=== PATIENT | male | born 1985 | race Caucasian/White ===

== ENCOUNTER 2020-05-16 07:51 | Outpatient (REF) | payer OTHER, SELFPAY ==
[2020-05-16 11:26] LABS: Alanine Aminotransferase 58 U/L (0-40); Alkaline Phosphatase 91 U/L (39-117); Anion Gap 17 (12-20); Aspartate Amino Transferase 41 U/L (5-37); Bilirubin Total 0.7 mg/dL (0.0-1.0); Blood Urea Nitrogen 12 mg/dL (9-16); Calcium 9.2 mg/dL (8.4-10.2); Carbon Dioxide 25 mmol/L (22-29); Chloride 99 mmol/L (96-108); Cholesterol 246 mg/dL; Estimated Glomerular Filt Rate > 60; Glucose Fasting 95 mg/dL (60-99); HDL Cholesterol 73 mg/dL; LDL Cholesterol Calculated 155 mg/dl; Potassium 4.6 mmol/l (3.3-5.1); Sodium 136 mmol/L (135-145); Total Protein 7.8 g/dL (6.5-8.0); Triglycerides 94 mg/dL
[2020-05-16 11:51] LABS: TSH reflex Free T4 1.01 mIU/mL (0.32-4.0)
== END 2020-05-16 07:52 | disposition home or self-care (01) ==
LOC: HO.WFDLDS 07:51
PROVIDERS: Visit Provider Family Medicine
DX: R03.0 Elevated blood-pressure reading, without diagnosis of hypertension (principal); Z00.00 Encounter for general adult medical examination without abnormal findings
CPT/HCPCS: 80053; 80061; 84443

== ENCOUNTER 2023-01-22 09:55 | Outpatient (REF) | payer OTHER, SELFPAY ==
[2023-01-22 11:35] LABS: Hematocrit 44.6 % (42.0-52.0); Hemoglobin 15.1 g/dl (14.0-18.0); Mean Corpuscular HGB Conc 33.9 g/dl (31.0-36.0); Mean Corpuscular Hemoglobin 32.1 pg (27.0-33.0); Mean Corpuscular Volume 94.9 fL (80.0-98.0); Mean Platelet Volume 11.3 fL (9.4-12.4); Platelet Count 238 X10*3/uL (160-400); Red Cell Distribution Width 11.5 % (11.0-16.0); White Blood Count 6.5 X10*3/uL (4.8-10.8)
[2023-01-22 12:20] LABS: Alanine Aminotransferase 65 U/L (0-40); Albumin Level 4.6 g/dL (3.5-5.0); Alkaline Phosphatase 93 U/L (39-117); Anion Gap 15 (12-20); Aspartate Amino Transferase 52 U/L (5-37); Bilirubin Total 0.9 mg/dL (0.0-1.0); Blood Urea Nitrogen 13 mg/dL (9-16); Calcium 10.1 mg/dL (8.4-10.2); Carbon Dioxide 24 mmol/L (22-29); Chloride 104 mmol/L (96-108); Cholesterol 238 mg/dL; Estimated Glomerular Filt Rate > 60; Glucose Fasting 91 mg/dL (60-99); HDL Cholesterol 59 mg/dL; LDL Cholesterol Calculated 157 mg/dl; Potassium 4.3 mmol/L (3.3-5.1); Sodium 139 mmol/L (135-145); Total Protein 7.6 g/dL (6.5-8.0); Triglycerides 113 mg/dL
[2023-01-22 12:36] LABS: TSH reflex Free T4 0.91 uIU/mL (0.32-4.0)
== END 2023-01-22 09:56 | disposition home or self-care (01) ==
LOC: HO.WFDLDS 09:55
PROVIDERS: Visit Provider Nurse Practitioner Family
DX: Z00.00 Encounter for general adult medical examination without abnormal findings (principal); I10 Essential (primary) hypertension
CPT/HCPCS: 36415; 80053; 80061; 84443; 85027

== ENCOUNTER 2023-02-13 16:30 | Outpatient (AMB) | payer OTHER, SELFPAY ==
--- NOTE | 2023-02-13 16:33 | MHC.PC.OV ---
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 Accompanied by: Self / Same As Patient Allergies No Known Allergies Allergy (Verified 02/13/23 16:49) Medication List - Last Reconciled 02/13/23 by Pramod Teague, LING alprazolam 0.5 mg PO DAILY PRN benzonatate 200 mg PO TID buspirone 7.5 mg PO BID lisinopril 20 mg PO DAILY 30 days metoprolol succinate ER 25 mg PO BID 90 days propranolol 10 mg PO BID Tobacco use date assessed: 12/14/22 Dental Screening Dental Screen Date: 02/13/23 Did you have a dental visit in the last 12 months?: Yes Did you have a dental problem in the last 6 months where you did not have access to dental care?: No Was dental information given to patient?: Patient has dentist HPI HPI Comments History of Present Illness Details 37-year-old male presents for upper respiratory infection follow-up. He states he was evaluated at an urgent care clinic in [place] 4 days ago for upper respiratory infection and acute bronchitis. Negative covid/flu/RSV/strep test. Chest x-ray w/o acute findings of pneumonia. He reports sore throat, chest congestion, productive cough with brow to green phlegm, sweats, chills, SOB, lack of appetite, and occasional diarrhea. He also reports new onset of pressure in his ears and occasional pain in his left ear. He was prescribed Benzonate which he has been taking with significant cough improvement. He denies headache, fever, body aches, fatigue, or weakness. He notes he drinks 3 days weekly, a total of 30 beers PFSH Family History Father High blood pressure Social History Household Members: Family Household Members Other:: parents Both parents involved: Yes Caregiver staying overnight: No Housing: House Housing Other:: hmoe Are you a primary wound care nurse to a significant other at home: No Do you presently have visiting nurse or other home services: No 75 years or older and lives alone: No Alcohol intake: current Patient Tobacco Use Status: Former Tobacco user Quit Date: 2017 Cigarette Packs Per Day: 1 Cigarettes Per Day: 20.0 Years Smoked: 5 e-Cigarette/Vaping Use: Never Used Substance Use Type: Painkillers service: No Current occupational status: employed 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 Pal Bruce, Jessika Mendez, Salazar Puente and colleagues, with an educational pedro from [employer]. Review of Systems Const Details: Const Denies chills, Denies fatigue, Denies fever(s), Denies headache(s) and Denies weakness ENT Reports as per HPI Card Reports chest congestion, Denies chest pain, Denies lightheadedness, Denies dyspnea and Denies other (Palpitations) Resp Reports cough, Denies dyspnea, Denies wheezing and Denies other ( shortness of breath) GI Denies abdominal pain, Denies melena, Denies hematochezia, reports occasional diarrhea, Denies dyspepsia and Denies nausea Denies hematuria and Denies dysuria Musc Denies abnormal gait, Denies myalgias, Denies arthralgias, Denies numbness and Denies tingling Skin/Breast Denies rash, Denies unusual bruising and Denies wounds Neuro Denies abnormal gait, Denies dizziness, Denies headache(s), Denies memory loss, Denies numbness, Denies Sensory deficit (Neuro), Denies tingling and Denies weakness Psych Denies anxiety and Denies depression Endo Denies fatigue Aller/Immun Denies wheezing Physical exam (Primary Care) Tobacco/Smoking Status: Tobacco use Status Tobacco use date assessed 12/14/22 02/13/23 16:33 Patient Tobacco Use Status Former Tobacco user 02/13/23 16:33 e-Cigarette/Vaping Use Never Used 02/13/23 16:33 Thrive Assessment: Date of Thrive Assessment Date Thrive assessed 12/14/22 02/13/23 16:33 Const Other: General: no acute distress and well developed Nutritional Appearance: well nourished Orientation/consciousness: patient oriented x3 HENMT Head is normocephalic Significant erythema surrounding bilateral TM, no bulging, effusion, or edema Nasal turbinates and oropharynx are pink and moist Sinuses are nontender with palpation No auricular or cervical lymphadenopathy Eyes General: appearance normal, both eyes and all related structures Pupils: Equal, round and reactive pupils present EOM: EOMs intact bilaterally Resp Effort & Inspection: normal respiratory effort Auscultation: clear to auscultation bilaterally Cardio Rate: regular rate Rhythm: regular rhythm Heart sounds: S1 normal heart sound present, S2 normal heart sound present, no gallops, no murmurs and no rubs GI Palpation (GI): No Abdominal aortic bruit present, Soft to palpation, nontender, No hepatosplenomegaly present and No Rebound tenderness present Auscultation: normal bowel sounds General: Yes no CVA tenderness Back/Spine/Pelvis Back: no CVA tenderness Cervical Spine: cervical ROM normal and No Cervical spine tenderness Thoracic/Lumbar Spine: thoraco-lumbar ROM normal, No pain with thoraco-lumbar ROM, No thoracic spinal tenderness and No lumbar spinal tenderness Extrem General: Yes normal to inspection, No edema and No calf tenderness Skin General: warm and dry. Normal skin color. Normal skin turgor Lesions: no lesions Rashes: no rashes Trauma: no lacerations or abrasions Wounds: no wounds Nails: normal Neuro General: patient oriented x3, gait normal and no focal neuro deficit Cranial nerves: Yes Equal, round and reactive pupils present Cognition (Neuro): normal cognition Gait exam (Neuro): Normal gait present Sensory Exam: No Sensory deficit (Neuro) Psych Affect: normal affect Assessment and Plan Assessment & Plan (1) Viral upper respiratory illness: Code(s): J06.9 - Acute upper respiratory infection, unspecified Plan: Likely viral illness though possibly allergies. Viral illness There is no antibiotic medication for viruses.? They must run their course.? Most average 5-7 days but 7-10 days is not uncommon and up to 14 days is still possible.? A cough is often the last symptom to resolve and this can last for weeks in some cases. Rest Hydrate well -? Drink plenty of fluids.? Especially water. Tylenol or ibuprofen for muscle aches, headache, fever/discomfort Z-Brandon as ordered Chest x-ray ordered to rule out pneumonia Return for new or worsening symptoms Verbalized understanding and agreed with treatment plan. (2) Bilateral otitis media: Code(s): H66.93 - Otitis media, unspecified, bilateral Plan: Reports new onset of pressure in his ears and occasional pain in his left ear Significant erythema surrounding bilateral TM, no bulging, effusion, or edema Z-Brandon ordered. Take as prescribed Adequate hydration encouraged Follow-up with worsening or new symptoms Verbalized understanding and agreed with treatment plan. (3) Hypercholesterolemia: Code(s): E78.00 - Pure hypercholesterolemia, unspecified Plan: Recent blood work reviewed with the patient Total cholesterol and LDL are elevated; triglycerides and HDL are normal Advised to limit foods high in saturated fat and avoid foods high trans fat Routine exercise encouraged Verbalized understanding and agreed with treatment plan (4) Elevated LFTs: Code(s): R79.89 - Other specified abnormal findings of blood chemistry Plan: AST and ALT elevated Likely due to excessive alcohol intake Advised to limit or avoid alcohol consumption Liver ultrasound ordered Follow-up with PCP in 1 month or return sooner with symptoms or concerns Verbalized understanding and agreed with treatment plan. (5) Hypertension: Code(s): I10 - Essential (primary) hypertension Plan: Resting blood pressure is 138/80, below goal of less than 140/90 Continue to take antihypertensives as prescribed Low-sodium diet encouraged Follow-up with PCP in 1 month or return sooner with symptoms or concerns Verbalized understanding and agreed with treatment plan. Orders: Orders XR chest 2V Today J06.9 - Acute upper respiratory infection, unspecified US abdomen limited Today R79.89 - Other specified abnormal findings of blood chemistry Medications: New cetirizine (Zyrtec) 10 mg PO DAILY 30 tabs 2RF 30 days azithromycin (Zithromax Z-Brandon) For 250 mg dose pack: take 500 mg today (day 1), then 250 mg for 4 days (days 2-5) PO 6 tabs 0RF Coding Level of Care Code Est Pt Level 4 (59622) Diagnoses Viral upper respiratory illness J06.9 Bilateral otitis media H66.93 Hypercholesterolemia E78.00 Elevated LFTs R79.89 Hypertension I10
[2023-02-13 16:37] VITALS: BP 142/80; PULSE 87; O2SAT 97; BMI 36.3
[2023-02-13 17:02] VITALS: BP 138/80
== END 2023-02-13 17:13 | disposition home or self-care (01) ==
PROVIDERS: PCP Family Medicine; Visit Provider Nurse Practitioner Family
DX: I10 Essential (primary) hypertension (principal); J06.9 Acute upper respiratory infection, unspecified; H66.93 Otitis media, unspecified, bilateral; E78.00 Pure hypercholesterolemia, unspecified; R79.89 Other specified abnormal findings of blood chemistry
CPT/HCPCS: 99214

== ENCOUNTER 2023-03-07 08:19 | Outpatient (REF) | payer OTHER, SELFPAY ==
--- NOTE | ~2023-03-07 | US_ITS ---
EXAMINATION: US ABDOMEN LIMITED CLINICAL INFORMATION: Other specified abnormal findings of blood chemistry. COMPARISON: None available. TECHNIQUE: Real-time imaging of the right upper quadrant abdominal viscera. FINDINGS: PANCREAS: Normal. LIVER: The liver is normal in size. The liver contour is normal. No focal hepatic lesion. The liver is of increased parenchymal echotexture. There is no intrahepatic biliary duct dilatation seen. GALLBLADDER: The gallbladder is physiologically distended without evidence of stones, sludge, polyps, wall thickening or pericholecystic fluid. COMMON BILE DUCT: Normal in caliber measuring 0.53 cm in diameter. RIGHT KIDNEY: Normal. No hydronephrosis. No renal calculi or focal parenchymal lesions. The kidney measures 11.6 cm in maximum dimension. FREE FLUID: None. US/US abdomen limited IMPRESSION: No gallstones or biliary dilatation. Fatty infiltration of the liver.
== END 2023-03-07 08:20 | disposition home or self-care (01) ==
LOC: HO.HMGCX 08:19
PROVIDERS: PCP Family Medicine; Visit Provider Nurse Practitioner Family
DX: R79.89 Other specified abnormal findings of blood chemistry (principal); K76.0 Fatty (change of) liver, not elsewhere classified
CPT/HCPCS: 76705

== ENCOUNTER 2023-03-14 15:28 | Outpatient (AMB) | payer OTHER, SELFPAY ==
--- NOTE | 2023-03-14 15:30 | MHC.PC.OV ---
Vital Signs 03/14/23 15:33 Height 5 ft 11 in Weight 263 lb BMI 36.7 BP 120/70 Blood Pressure Location Lt brachial Pulse 77 Pulse Source Pulse Oximeter Pulse Oximetry (%) 97 Oxygen Delivery Method Room Air Intake Visit Reasons: 1 mos HTN, anxiety Intake Note: Patient is here to follow up on labs and ultrasound. Allergies No Known Allergies Allergy (Verified 03/14/23 15:37) Tobacco use date assessed: 03/14/23 HPI 1 mos HTN, anxiety HPI Details 37 y/o male presents to f/u hypertension and anxiety. Blood pressure today 120/70. He is on lisinopril 20mg, metoprolol 25mg b.i.d. and propranolol 10mg b.i.d. Abdomen ultrasound 03/07/23 showed no gallstones or biliary dilatation. Fatty infiltration of the liver. Pt notes he has not had made significant changes to his drinking. PFSH Family History Father High blood pressure Social History Household Members: Family Household Members Other:: parents Both parents involved: Yes Caregiver staying overnight: No Housing: House Housing Other:: hmoe Are you a primary district manager primary care sales to a significant other at home: No Do you presently have visiting nurse or other home services: No 75 years or older and lives alone: No Alcohol intake: current Patient Tobacco Use Status: Former Tobacco user Quit Date: 2017 Cigarette Packs Per Day: 1 Cigarettes Per Day: 20.0 Years Smoked: 5 e-Cigarette/Vaping Use: Never Used Substance Use Type: Painkillers service: No Current occupational status: employed 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 Pal Bruce, Jessika Mendez, Salazar Puente and colleagues, with an educational pedro from [employer] Review of Systems Const Denies chills, Denies fatigue, Denies fever(s), Denies headache(s) and Denies weakness ENT Denies dizziness and Denies headache(s) Card Denies chest pain, Denies lightheadedness, Denies dyspnea and Denies other (Palpitations) Resp Denies cough, Denies dyspnea, Denies wheezing and Denies other ( shortness of breath) Musc Denies numbness and Denies tingling Neuro Denies dizziness, Denies headache(s), Denies numbness, Denies tingling, Denies paresthesias and Denies weakness Psych Denies anxiety and Denies depression Endo Denies fatigue Aller/Immun Denies wheezing Physical exam (Primary Care) Vital Signs: Last Vital Signs Pulse 77 03/14/23 15:33 BP 120/70 03/14/23 15:33 Pulse Ox 97 03/14/23 15:33 Oxygen Delivery Method Room Air 03/14/23 15:33 BMI result Body Mass Index 36.7 Tobacco/Smoking Status: Tobacco use Status Tobacco use date assessed 03/14/23 03/14/23 15:38 Patient Tobacco Use Status Former Tobacco user 03/14/23 15:32 e-Cigarette/Vaping Use Never Used 03/14/23 15:32 Thrive Assessment: Date of Thrive Assessment Date Thrive assessed 12/14/22 03/14/23 15:32 Const General: no acute distress and well developed Nutritional Appearance: well nourished Orientation/consciousness: patient oriented x3 HENMT Head: Yes normocephalic and Yes atraumatic Eyes General: appearance normal, both eyes and all related structures Pupils: Equal, round and reactive pupils present EOM: EOMs intact bilaterally Resp Effort & Inspection: normal respiratory effort Auscultation: clear to auscultation bilaterally Cardio Rate: regular rate Rhythm: regular rhythm Heart sounds: S1 normal heart sound present, S2 normal heart sound present, no gallops, no murmurs and no rubs Neuro General: patient oriented x3 and gait normal Cranial nerves: Yes Equal, round and reactive pupils present Psych Affect: normal affect Assessment and Plan Assessment & Plan (1) Hypertension: Code(s): I10 - Essential (primary) hypertension Plan: Blood pressure is well controlled. Patient is on lisinopril and metoprolol for blood pressure and metoprolol was also started to help with anxiety - patient notes that this has been helping with anxiety. However, his psych med provider added some propranolol as well. Patient notes that psych med provider is aware metoprolol. He will discuss again with his psych med provider; I would prefer to have 1 beta-adenike and would be willing to switch over all this to propranolol if recommended. (2) Anxiety: Code(s): F41.9 - Anxiety disorder, unspecified Plan: Controlled on current medications; alprazolam buspirone and beta-blockers. Follow-up with psych med provider as mentioned above (3) Elevated LFTs: Code(s): R79.89 - Other specified abnormal findings of blood chemistry Plan: Elevated liver enzymes and ultrasound showed fatty deposits in the liver but otherwise unremarkable. He has not made significant changes in his drinking but after a long discussion today seems to be more motivated to do so. Encouraged decreasing alcohol intake, increasing hydration and encouraged weight loss Will follow his liver enzymes If worsening will consider ultrasound with elastography and referral to GI Hopefully he will be able to bring his liver enzymes down with above recommendations (4) Alcohol use disorder: Code(s): F10.90 - Alcohol use, unspecified, uncomplicated Plan: As above, patient is still drinking about 30 drinks per week Encouraged wean this down and patient seems motivated to try to do so. Orders: Orders Comprehensive Met. Panel Today R74.01 - Elevation of levels of liver transaminase levels Coding Level of Care Code Est Pt Level 3 (43980) Diagnoses Hypertension I10 Anxiety F41.9 Elevated LFTs R79.89 Alcohol use disorder F10.90
[2023-03-14 15:33] VITALS: BP 120/70; PULSE 77; O2SAT 97; BMI 36.7
== END 2023-03-14 16:37 | disposition home or self-care (01) ==
PROVIDERS: PCP Family Medicine; Visit Provider Family Medicine
DX: I10 Essential (primary) hypertension (principal); F41.9 Anxiety disorder, unspecified; R79.89 Other specified abnormal findings of blood chemistry; F10.90 Alcohol use, unspecified, uncomplicated
CPT/HCPCS: 99213

== ENCOUNTER 2024-08-22 09:36 | Outpatient (REF) | payer OTHER, SELFPAY ==
[2024-08-22 11:14] LABS: Appearance Urine Clear; Color Urine Yellow; Glucose Urine UA Negative (Negative); Leukocyte Esterase Urine Negative (Negative); Nitrite Urine Negative (Negative); PH 6.5 (5.0-9.0); Specific Gravity - Urine <= 1.005 (1.005-1.025); Urine Blood Negative (Negative); Urine Ketones Negative (Negative); Urine Protein Negative (Neg-Trace)
[2024-08-22 11:15] LABS: MANUAL DIFF FLAG NO
[2024-08-22 11:19] LABS: Basophils Percent Auto 0.6 % (0-2); Eosinophils Absolute Auto 0.2 X10*3/uL (0.0-0.4); Eosinophils Percent Auto 3.1 % (0-4); Hematocrit 43.6 % (42.0-52.0); Hemoglobin 14.9 g/dl (14.0-18.0); Imm Gran Abs Auto 0.03 X10*3/uL (0.00-0.03); Imm Gran Pct Auto 0.5 % (0.0-0.4); Lymphocytes Absolute Auto 1.9 X10*3/uL (1.2-4.9); Lymphocytes Percent Auto 30.2 % (20-40); Mean Corpuscular HGB Conc 34.2 g/dl (31.0-36.0); Mean Corpuscular Hemoglobin 31.7 pg (27.0-33.0); Mean Corpuscular Volume 92.8 fL (80.0-98.0); Mean Platelet Volume 10.9 fL (9.4-12.4); Monocytes Absolute Auto 0.8 X10*3/uL (0.1-1.2); Monocytes Percent Auto 11.8 % (2-11); Neutrophils Absolute Auto 3.5 x10*3/uL (2.0-8.3); Neutrophils Percent Auto 53.8 % (45-73); Platelet Count 226 X10*3/uL (160-400); Red Cell Distribution Width 11.8 % (11.0-16.0); White Blood Count 6.4 X10*3/uL (4.8-10.8)
[2024-08-22 11:32] LABS: Creatinine Urine 51.85 mg/dL; Microalbum/Creatinine Ratio Ur 23.1 ug/mg cr (<30)
[2024-08-22 11:57] LABS: Alanine Aminotransferase 108 U/L (0-40); Albumin Level 4.7 g/dL (3.5-5.0); Alkaline Phosphatase 97 U/L (39-117); Anion Gap 15 (12-20); Aspartate Amino Transferase 89 U/L (5-37); Bilirubin Total 0.8 mg/dL (0.0-1.0); Blood Urea Nitrogen 10 mg/dL (9-16); Calcium 9.8 mg/dL (8.4-10.2); Carbon Dioxide 26 mmol/L (22-29); Chloride 101 mmol/L (96-108); Cholesterol 225 mg/dL (<200); Estimated Glomerular Filt Rate > 60; Glucose Fasting 93 mg/dL (60-99); HDL Cholesterol 48 mg/dL (>40); LDL Cholesterol Calculated 151 mg/dL (<100); Potassium 4.5 mmol/L (3.3-5.1); Sodium 137 mmol/L (135-145); Total Protein 8.2 g/dL (6.5-8.0); Triglycerides 134 mg/dL (<150)
== END 2024-08-22 09:37 | disposition home or self-care (01) ==
LOC: HO.HMGCLDS 09:36
PROVIDERS: PCP Family Medicine; Visit Provider Family Medicine
DX: Z00.00 Encounter for general adult medical examination without abnormal findings (principal); I10 Essential (primary) hypertension
CPT/HCPCS: 36415; 80053; 80061; 81003; 82043; 82570; 84443; 85025

== ENCOUNTER 2024-08-24 11:51 | Outpatient (AMB) | payer OTHER, SELFPAY ==
--- NOTE | 2024-08-24 11:58 | MHC.PC.OV ---
Vital Signs 08/24/24 12:00 Height 5 ft 11 in Weight 277 lb BMI 38.6 BP 138/80 Blood Pressure Location Lt brachial Position Sitting Pulse 86 Pulse Source Pulse Oximeter Temp 98.2 F Temp Source Oral Pulse Oximetry (%) 95 Oxygen Delivery Method Room Air Intake Visit Reasons: PE /fu Labs Package Reinspector Required: No Allergies No Known Allergies Allergy (Verified 08/24/24 12:30) Medication List - Last Reconciled 08/24/24 by ALETHA HillP- alprazolam 0.5 mg PO DAILY PRN buspirone 7.5 mg PO BID lisinopril 20 mg PO DAILY 30 days propranolol 20 mg PO TID Tobacco use date assessed: 08/24/24 Dental Screening Dental Screen Date: 08/24/24 Did you have a dental visit in the last 12 months?: Yes Did you have a dental problem in the last 6 months where you did not have access to dental care?: No Was dental information given to patient?: Patient has dentist HPI HPI Comments History of Present Illness Details Here today for CPE. Pt of Dr Pineda. concerns regarding elevated liver enzymes noted during past evaluations, associated with chronic alcohol consumption. Historically, the patient has consumed approximately five to six beers daily, increasing during weekends. Attempts at reducing intake include participating in So[facility] and other short-lived abstinence periods. The recent laboratory evaluation from August 22, 2024 indicated further elevation in liver enzymes, with AST at 89 and ALT at 108 compared to prior results of AST 52 and ALT 65 from January 2023. The patient expresses concerns regarding the impact of alcohol on hepatic function and seeks to know current lab results. Despite previous interventions like temporary abstinence from alcohol, the patient?s drinking habits have persistently led to elevations in liver enzymes, with no significant lifestyle modifications implemented. The patient's hypertension well controlled on current meds hyperlipidemia not on statin ASHA/mood monitored by psych care assoc [facility] Maintenance - Discussion and offer of influenza vaccination declined. - Tetanus, diphtheria, and pertussis (Tdap) vaccination recommended and administered today - Brief weight management counseling due to a recorded weight of 279 pounds. - Brief educational discussion regarding risks of continued alcohol consumption and potential referrals for management. 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 - Familyhx: Dad with Multiple Myeloma - Substance Use: Reports consuming five to six beers daily, with increased consumption on weekends. No previous engagement with structured support for cessation. - Exercise and Nutrition: needs improvement Review of Systems - General: Denies any current subjective distress. - Musculoskeletal: Denies back, hip, or leg pain. - Gastrointestinal: Reports regular bowel movements and urination without issues. Surgery: none Exam: General: Well developed, well nourished, in no acute distress. Appears stated age. Head: Normocephalic, atraumatic. Eyes: Pupils are equal, round and reactive to light and accommodation. Conjunctivae are clear. Vision grossly normal. Ears: TMs clear AU, EACS WNL Nose: Patent, without discharge. Mouth: There are no ulcers or lesions noted. No inflammation, no post nasal drip, no plaques nor exudates. Neck: Supple, no adenopathy or thyromegaly. Lungs: Clear to auscultation bilaterally. No rales, rhonchi or wheeze noted. Good air flow in all rodríguez. Heart: Regular rate and rhythm. No murmurs, click, rubs or gallops are noted. Abdomen: Bowel sounds present in all quadrants. The abdomen is soft, nontender, with no masses or organomegaly noted. No hernias are noted. Musculoskeletal: Joints are nontender, without swelling, redness, or effusions. Range of motion is observed to be normal. Pulses: Peripheral pulses are equal and palpable bilaterally. Extremities: No clubbing, cyanosis nor edema is noted. Neurologic: Gait and station normal. Cranial Nerves 2-12 intact. Motor strength grossly symmetrical and intact. No sensory loss. Balance normal. Skin: No rashes, ulcers, or lesions noted. Turgor is good. Skin color is good. Hair and nails are without abnormalities. Psych: Normal eye contact, affect and mood appropriate, and normal interactions. Patient is alert and appropriate to context. Results - Labs: Liver function tests from August 22, 2024 revealed elevated AST at 89 and ALT at 108. Previously recorded AST 52 and ALT 65 from January 2023. Cholesterol remains elevated. Thyroid and blood sugar levels are within normal ranges. Discussion Notes I discussed the ramifications of elevated liver enzymes with the patient, likely related to chronic alcohol consumption. We reviewed how liver function tests have further deteriorated, emphasizing the need for a structured plan to lower alcohol intake. I introduced the concept of gradual lifestyle changes and suggested alcohol moderation as a potential strategy. We explored the option of engaging with the [facility] for individualized outpatient support, including possible medical and counseling interventions. In response, the patient expressed a desire to try moderation independently, acknowledging the support system available as needed. The potential risks and benefits of lifestyle modifications, including reducing alcohol intake to support liver health and overall wellness, were discussed. Consent for the tetanus vaccination was obtained. The necessity of adhering to prescribed antihypertensive treatment was reaffirmed, with arrangements made to modify prescription durations. Follow-up laboratory appointments were planned proactively to monitor liver function alongside cholesterol levels. Plan The elevated liver enzymes are primarily attributed to alcohol use disorder, highlighting a need for modified consumption habits. I discussed the importance of reducing daily alcohol intake to manage the condition effectively. The referral to the [facility] has been placed, allowing the patient the flexibility to engage with support as needed. The patient's hypertension will continue to be managed with lisinopril, pending insurance approval for 90-day supply prescriptions as preferred. The need for cholesterol management remains, with potential lifestyle interventions such as diet modifications and exercise deliberated. The anxiety disorder is currently stable with buspirone and propranolol, though the patient has been advised to contact psych care associates for any future therapeutic needs. Weight management counseling and discussions about follow-up intervals for routine wellness have also been addressed. Labs for non-fasting cholesterol and liver function tests will be ordered ahead of the next appointment to ensure ongoing monitoring. Patient was informed and verbally consented to the use of an ambient scribe for clinic note documentation during this visit. RTO 6 MONTHS WITH REPEAT LABS WITH PCP FU HTN HLD ETOH, SOONER PRN PFSH Surgical History No pertinent past surgical history Family History Father High blood pressure Social History Household Members: Family Household Members Other:: parents Both parents involved: Yes Caregiver staying overnight: No Housing: House Housing Other:: hmoe Are you a primary landcare officer to a significant other at home: No Do you presently have visiting nurse or other home services: No 75 years or older and lives alone: No Alcohol intake: current Patient Tobacco Use Status: Former Tobacco user Cigarette Packs Per Day: 1 Cigarettes Per Day: 20.0 Years Smoked: 5 e-Cigarette/Vaping Use: Never Used Substance Use Type: Painkillers service: No Current occupational status: employed 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 1. Little interest or pleasure in doing things: not at all 2. Feeling down, depressed, or hopeless: not at all 3. Trouble falling or staying asleep, or sleeping too much: not at all 4. Feeling tired or having little energy: not at all 5. Poor appetite or overeating: not at all 6. Feeling bad about yourself - or that you are a failure or have let yourself or your family down: not at all 7. Trouble concentrating on things, such as reading the newspaper or watching television: not at all 8. Moving or speaking so slowly that other people could have noticed. Or the opposite - being so fidgety or restless that you have been moving around a lot more than usual: not at all 9. Thoughts that you would be better off or of hurting yourself in some way: not at all Total score: 0 Depression Screening Interpretation: Negative Depression Screening Done: Yes 66595 - PHQ-9 Billing: Yes Source: Developed by Drs. Pal Bruce, Jessika Mendez, Salazar Puente and colleagues, with an educational pedro from [employer]. Thrive Questionnaire Date Thrive assessed: 08/24/24 I am a: Patient What is your living situation today?: I have a steady place to live Within the past 12 months, did the food you bought not last and you didn't have the money to get more?: Never true Within the past 12 months, did you worry whether your food would run out before you got money to buy more?: Never true Do you have trouble paying for medicines?: No Do you have trouble getting transportation to medical appointments?: No Do you have trouble paying your heating and electricity bill?: No Do you have trouble taking care of your child, family member or friend?: No Do you have trouble with day-to-day activities such as bathing, preparing meals, shopping, managing finances, etc.?: No Are you currently unemployed and looking for a job?: No Are you interested in more education?: No Please select the resources that you would like help with: None Currently or been in a relationship where the following occur: No concerns reported THRIVE Score: 0 AUDIT C Alcohol Use Questionnaire (AUDIT-C) 1. How often do you have a drink containing alcohol?: 4 or more times a week 2. How many drinks containing alcohol do you have on a typical day when you are drinking?: 1 or 2 3. How often do you have six or more drinks on one occasion?: Less than monthly Total Score: 5 Score Reviewed/Action Taken: Yes ASHA-7 AMB Questionnaire ASHA-7 Date ASHA - 7 assessed: 08/24/24 Feeling nervous, anxious, or on edge: 0 = Not at all Not being able to stop or control worryin = Not at all Worrying too much about different things: 0 = Not at all Trouble relaxin = Not at all Being so restless that it is hard to sit still: 0 = Not at all Becoming easily annoyed or irritable: 0 = Not at all Feeling afraid as if something awful might happen: 0 = Not at all Total ASHA-7 score (0-4 normal; 5-9 mild; 10-14 moderate; 15-21 severe): 0 Source: Developed by Drs. Pal Bruce, Jessika Mendez, Salazar Puente and colleagues, with an educational pedro from [employer]. ASHA-7 Assessment Billing ASHA-7 Assessment Tool: ASHA-7 Assessment 65441 Physical exam (Primary Care) Vital Signs: Last Vital Signs Temp 98.2 F 08/24/24 12:00 Pulse 86 08/24/24 12:00 BP 138/80 08/24/24 12:00 Pulse Ox 95 08/24/24 12:00 Oxygen Delivery Method Room Air 08/24/24 12:00 BMI result Body Mass Index 38.6 BMI Assessment/Plan discussion: High BMI High, discussed plan: lifestyle Tobacco/Smoking Status: Tobacco use Status Tobacco use date assessed 08/24/24 08/24/24 12:05 Patient Tobacco Use Status Former Tobacco user 08/24/24 12:05 e-Cigarette/Vaping Use Never Used 08/24/24 12:05 PHQ-9: PHQ-9 Score PHQ-9: Total score 0 08/24/24 15:56 Depression Screening Interpretation: Negative Thrive Assessment: Date of Thrive Assessment Date Thrive assessed 08/24/24 08/24/24 12:05 Currently or been in a relationship where the following occur: No concerns reported Immunizations Boostrix Tdap 2.5 Lf unit-8 mcg-5 Lf/0.5 mL intramuscular syringe Performing Provider: ELYSSA Hill Performing Location: [facility] Administered by: Fidel Braun CMA on 08/24/24 13:07 Dose Route Admin Location Dispensed Lot Number Expiration Date 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 0.5 mL IM Right Deltoid 0.5 mL [id number] 10/03/26 01208-102-60 [employer] VIS Given Date VIS Provided VIS Publication Date 08/24/24 Single Vaccine 21 Eligibility Eligibility Date Funding Source Not [facility] Eligible 08/24/24 Private Coding Level of Care Code Est Pt Prev Care 18-39y([id number]) Diagnoses Encounter for general adult medical examination without abnormal findings Z00.00 Alcohol use disorder F10.90 BMI 38.0-38.9,adult Z68.38 Class 2 severe obesity due to excess calories with serious comorbidity and body mass index (BMI) of 38.0 to 38.9 in adult E66.812; E66.01; Z68.38 Obesity type: due to excess calories Serious obesity comorbidity presence: with serious comorbidity Hypercholesterolemia E78.00 Primary hypertension I10 Hypertension type: primary hypertension Elevated LFTs R79.89 Influenza vaccination declined Z28.21 Need for Tdap vaccination Z23 Anxiety F41.9 Additional Codes ASHA-7 Assessment Billing - ASHA-7 Assessment Tool: ASHA-7 Assessment 62908 ([id number]) PHQ-9 - 60771 - PHQ-9 Billing: Yes ([id number]) Assessment & Plan Assessment & Plan (1) Encounter for general adult medical examination without abnormal findings: Code(s): Z00.00 - Encounter for general adult medical examination without abnormal findings Category: Medical (2) Alcohol use disorder: Code(s): F10.90 - Alcohol use, unspecified, uncomplicated Category: Medical (3) BMI 38.0-38.9,adult: Code(s): Z68.38 - Body mass index [BMI] 38.0-38.9, adult Category: Medical (4) Class 2 obesity with body mass index (BMI) of 38.0 to 38.9 in adult: Comment: htn + hld Code(s): E66.812 - Obesity, class 2; Z68.38 - Body mass index [BMI] 38.0-38.9, adult Category: Medical Qualifiers: Obesity type: due to excess calories Serious obesity comorbidity presence: with serious comorbidity Qualified Code(s): E66.812 - Obesity, class 2; E66.01 - Morbid (severe) obesity due to excess calories; Z68.38 - Body mass index [BMI] 38.0-38.9, adult (5) Hypercholesterolemia: Code(s): E78.00 - Pure hypercholesterolemia, unspecified Category: Medical (6) Hypertension: Code(s): I10 - Essential (primary) hypertension Category: Medical Qualifiers: Hypertension type: primary hypertension Qualified Code(s): I10 - Essential (primary) hypertension (7) Elevated LFTs: Code(s): R79.89 - Other specified abnormal findings of blood chemistry Category: Medical (8) Influenza vaccination declined: Code(s): Z28.21 - Immunization not carried out because of patient refusal Category: Medical (9) Need for Tdap vaccination: Code(s): Z23 - Encounter for immunization Category: Medical (10) Anxiety: Code(s): F41.9 - Anxiety disorder, unspecified Category: Medical Plan . Orders: Orders Lipid Panel 6 Months E66.812 - Obesity, class 2, E78.00 - Pure hypercholesterolemia, unspecified, F10.90 - Alcohol use, unspecified, uncomplicated, I10 - Essential (primary) hypertension, Z68.38 - Body mass index [BMI] 38.0-38.9, adult Hemoglobin A1c 6 Months E66.812 - Obesity, class 2, E78.00 - Pure hypercholesterolemia, unspecified, F10.90 - Alcohol use, unspecified, uncomplicated, I10 - Essential (primary) hypertension, Z68.38 - Body mass index [BMI] 38.0-38.9, adult Vitamin B12 and Folate 6 Months E66.812 - Obesity, class 2, E78.00 - Pure hypercholesterolemia, unspecified, F10.90 - Alcohol use, unspecified, uncomplicated, I10 - Essential (primary) hypertension, Z68.38 - Body mass index [BMI] 38.0-38.9, adult TDaP Immunization Today Z23 - Encounter for immunization Comprehensive Met. Panel 6 Months E66.812 - Obesity, class 2, E78.00 - Pure hypercholesterolemia, unspecified, F10.90 - Alcohol use, unspecified, uncomplicated, I10 - Essential (primary) hypertension, Z68.38 - Body mass index [BMI] 38.0-38.9, adult Referrals Addiction Medicine Referral F10.90 - Alcohol use, unspecified, uncomplicated Medications: Changed From lisinopril 20 mg PO DAILY 30 days 30 tabs 1RF To lisinopril 20 mg PO DAILY 90 tabs 2RF 90 days Patient Instructions: Patient Instructions - Consider reducing alcohol consumption, gradually aiming for no alcohol during weekdays and limited intake on weekends. - Proactively utilize the [facility] if voluntary reduction efforts prove challenging. - Continue taking lisinopril, buspirone, and propranolol as prescribed, noting any adverse effects. - Monitor liver function and cholesterol levels with scheduled laboratory checks prior to next follow-up. - Update tetanus vaccination administered today, valid for 10 years. - Aim for incremental lifestyle changes, including potential weight reduction. - Contact healthcare provider or utilize patient portal for any new symptoms or concerns prior to scheduled follow-up. To reduce low-density lipoprotein (LDL) cholesterol, you can try making lifestyle changes to your diet, exercise, and other habits: Eat a heart-healthy diet Limit saturated and trans fats, and eat more foods with healthy fats, like nuts, seeds, and unsaturated oils. You can also try eating more soluble fiber, which can help reduce the amount of cholesterol your body absorbs. Foods high in soluble fiber include whole grains, fruits, and legumes. Exercise regularly Aim for at least 150 minutes of exercise per week, such as walking, swimming, or cycling. Maintain a healthy weight Losing weight can help lower LDL cholesterol, especially if you are overweight or obese. Manage stress Chronic stress can raise LDL cholesterol, so try to find healthy ways to manage it. Quit smoking Smoking can raise cholesterol and increase the risk of serious health problems. Get enough sleep Aim for 7 to 9 hours of sleep per night. You should also limit foods with cholesterol, which are found in animal products like liver, egg yolks, and whole milk dairy products. Health screenings for men You should visit your health care provider regularly, even if you feel healthy. The purpose of these visits is to: Screen for medical issues Assess your risk for future medical problems Encourage a healthy lifestyle Update vaccinations and other preventive care services Help you get to know your provider in case of an illness Information Even if you feel fine, you should still see your provider for regular checkups. These visits can help you avoid problems in the future. For example, the only way to find out if you have high blood pressure is to have it checked regularly. High blood sugar and high cholesterol level also may not have any symptoms in the early stages. Simple blood tests can check for these conditions. There are specific times when you should see your provider or receive specific health screenings. The [place] Preventive Services Task Force publishes a list of recommended screenings. Below are screening guidelines for men ages 40 to 64. BLOOD PRESSURE SCREENING Have your blood pressure checked at least once every year. Watch for blood pressure screenings in your area. Ask your provider if you can stop in to have your blood pressure checked. Ask your provider if you need your blood pressure checked more often if: You have diabetes, heart disease, kidney problems, or are overweight or have certain other health conditions You have a first-degree relative with high blood pressure You are Black Your blood pressure top number is from 120 to 129 mm Hg, or the bottom number is from 70 to 79 mm Hg If the top number is 130 mm Hg or greater or the bottom number is 80 mm Hg or greater, this is considered stage 1 hypertension. Schedule an appointment with your provider to learn how you can lower your blood pressure. Effects of age on blood pressure CHOLESTEROL SCREENING Cholesterol screening should begin at age 35 for men with no known risk factors for coronary heart disease. Repeat cholesterol screening should take place: Every 5 years for men with normal cholesterol levels More often if changes occur in lifestyle (including weight gain and diet) More often if you have diabetes, heart disease, kidney problems, or certain other conditions COLORECTAL CANCER SCREENING If you are under age 45, talk to your provider about getting screened. You may need to be screened if you have a strong family history of colon cancer or polyps. Screening may also be considered if you have risk factors such as a history of inflammatory bowel disease or polyps. If you are age 45 to 75, you should be screened for colorectal cancer. There are several screening tests available: A stool-based fecal occult blood (gFOBT) or fecal immunochemical test (FIT) every year A stool sDNA test every 1 to 3 years Flexible sigmoidoscopy every 5 years or every 10 years with stool testing FIT done every year CT colonography (virtual colonoscopy) every 5 years Colonoscopy every 10 years You may need a colonoscopy more often if you have risk factors for colorectal cancer, such as: Ulcerative colitis A personal or family history of colorectal cancer A history of growths in your colon called adenomatous polyps DENTAL EXAM Go to the dentist once or twice every year for an exam and cleaning. Your dentist will evaluate if you have a need for more frequent visits. DIABETES SCREENING All adults who do not have risk factors for diabetes should be screened starting at age 35 and repeated every 3 years. If you have other risk factors for diabetes, such as a first degree relative with diabetes, overweight or obesity, high blood pressure, prediabetes, or a history of heart disease, you may be tested more often. If you are overweight and have other risk factors, such as high blood pressure and are planning to become , screening is recommended. EYE EXAM Have an eye exam every 2 to 4 years ages 40 to 54 and every 1 to 3 years ages 55 to 64. Your provider may recommend more frequent eye exams if you have vision problems or glaucoma risk. Have an eye exam that includes an examination of your retina (back of your eye) at least every year if you have diabetes. IMMUNIZATIONS Commonly needed vaccines include: Flu shot: get one every year COVID-19 vaccine: ask your provider what is best for you Tetanus-diphtheria and acellular pertussis (Tdap) vaccine: have as one of your tetanus-diphtheria vaccines if you did not receive it as an adolescent Tetanus-diphtheria: have a booster (or Tdap) every 10 years Varicella vaccine: receive 2 doses if you never had chickenpox or the varicella vaccine and were born in 1980 or after Hepatitis B vaccine: receive 2, 3, or 4 doses, depending on your exact circumstances, if you did not receive these as a child or adolescent, until age 59 Shingles (herpes zoster) vaccine: at or after age 50 Ask your provider if you should receive other immunizations, especially if you have certain medical conditions, such as diabetes or are at increased risk for some diseases such as pneumonia. INFECTIOUS DISEASE SCREENING Screening for hepatitis C: all adults ages 18 to 79 should get a one-time test for hepatitis C. Screening for human immunodeficiency virus (HIV): all people ages 15 to 65 should get a one-time test for HIV. Depending on your lifestyle and medical history, you may need to be screened for infections such as syphilis, chlamydia, and other infections. LUNG CANCER SCREENING You should have an annual screening for lung cancer with low-dose computed tomography (LDCT) if: You are age 50 to 80 years AND You have a 20 pack-year smoking history AND You currently smoke or have quit within the past 15 years OSTEOPOROSIS SCREENING If you are age 50 to 64 and have risk factors for osteoporosis, you should discuss screening with your provider. Risk factors can include long-term steroid use, low body weight, smoking, heavy alcohol use, having a fracture after age 50, or a family history of hip fracture or osteoporosis. Osteoporosis PHYSICAL EXAM All adults should visit their provider from time to time, even if they are healthy. The purpose of these visits is to: Screen for diseases Assess risk of future medical problems Encourage a healthy lifestyle Update vaccinations and other preventive care services Maintain a relationship with a provider in case of an illness Your height, weight, and body mass index (BMI) should be checked at every exam. During your exam, your provider may ask you about: Depression and anxiety Diet and exercise Alcohol and tobacco use Safety, such as use of seat belts and smoke detectors Your medicines and risk for interactions PROSTATE CANCER SCREENING If you're 55 through 69 years old, before having the test, talk to your provider about the pros and cons of having a PSA test. Ask about: Whether screening decreases your chance of dying from prostate cancer. Whether there is any harm from prostate cancer screening, such as side effects from testing or overtreatment of cancer when discovered. Whether you have a higher risk of prostate cancer than others. If you are age 55 or younger, screening is not generally recommended. You should talk with your provider about if you have a higher risk for prostate cancer. Risk factors include: Having a family history of prostate cancer (especially a brother or father) Being If you choose to be tested, the PSA blood test is repeated over time (yearly or less often), though the best frequency is not known. Prostate examinations are no longer routinely done on men with no symptoms. Prostate cancer SKIN EXAM Your provider may check your skin for signs of skin cancer, especially if you're at high risk. People at high risk include those who have had skin cancer before, have close relatives with skin cancer, or have a weakened immune system. TESTICULAR EXAM The [place] Preventive Services Task Force (USPSTF) now recommends against performing testicular self-exams. Doing testicular self-exams has been shown to have little to no benefit.
[2024-08-24 12:00] VITALS: BP 138/80; PULSE 86; TEMP 36.8; O2SAT 95; BMI 38.6
== END 2024-08-24 12:58 | disposition home or self-care (01) ==
PROVIDERS: PCP Family Medicine; Visit Provider Nurse Practitioner Family
DX: Z00.00 Encounter for general adult medical examination without abnormal findings (principal); E78.00 Pure hypercholesterolemia, unspecified; Z68.38 Body mass index [BMI] 38.0-38.9, adult; E66.01 Morbid (severe) obesity due to excess calories; F10.90 Alcohol use, unspecified, uncomplicated; I10 Essential (primary) hypertension; R79.89 Other specified abnormal findings of blood chemistry; Z28.21 Immunization not carried out because of patient refusal; Z23 Encounter for immunization; F41.9 Anxiety disorder, unspecified

== ENCOUNTER → 2024-08-24 11:51 | Outpatient (BNVA) | payer OTHER, SELFPAY | PROVIDERS: PCP Family Medicine; Visit Provider Nurse Practitioner Family | DX: Z00.00 Encounter for general adult medical examination without abnormal findings (principal); Z23 Encounter for immunization; F10.90 Alcohol use, unspecified, uncomplicated; E66.812 Obesity, class 2; E66.01 Morbid (severe) obesity due to excess calories; Z68.38 Body mass index [BMI] 38.0-38.9, adult; E78.00 Pure hypercholesterolemia, unspecified; I10 Essential (primary) hypertension; R79.89 Other specified abnormal findings of blood chemistry; F41.9 Anxiety disorder, unspecified; Z79.899 Other long term (current) drug therapy | CPT/HCPCS: 90471; 90715; 96127 ==

== ENCOUNTER 2025-06-01 06:40 | Outpatient (REF) | payer OTHER, SELFPAY ==
[2025-06-01 07:33] LABS: Total Hemoglobin (HGBA1C) 2591.6977 umol/L
[2025-06-01 07:54] LABS: Alanine Aminotransferase 87 U/L (0-40); Albumin Level 5.0 g/dL (3.5-5.0); Alkaline Phosphatase 122 U/L (39-117); Anion Gap 14 (12-20); Aspartate Amino Transferase 77 U/L (5-37); Blood Urea Nitrogen 13 mg/dL (9-16); Calcium 9.5 mg/dL (8.4-10.2); Carbon Dioxide 27 mmol/L (22-29); Chloride 101 mmol/L (96-108); Cholesterol 240 mg/dL (<200); Estimated Glomerular Filt Rate > 60; HDL Cholesterol 51 mg/dL (>40); Potassium 4.2 mmol/L (3.3-5.1); Sodium 138 mmol/L (135-145); Total Protein 7.9 g/dL (6.5-8.0); Triglycerides 167 mg/dL (<150)
[2025-06-01 08:23] LABS: Folate 12.5 ng/mL (> or = 4.0); Vitamin B12 306 pg/mL (200-900)
== END 2025-06-01 06:41 | disposition home or self-care (01) ==
LOC: HO.LAB 06:40
PROVIDERS: PCP Nurse Practitioner Family; Visit Provider Nurse Practitioner Family
DX: I10 Essential (primary) hypertension (principal); F10.90 Alcohol use, unspecified, uncomplicated; E78.00 Pure hypercholesterolemia, unspecified; E66.812 Obesity, class 2; Z68.38 Body mass index [BMI] 38.0-38.9, adult; Z13.1 Encounter for screening for diabetes mellitus
CPT/HCPCS: 36415; 80053; 80061; 82607; 82746; 83036

== ENCOUNTER 2025-06-02 15:36 | Outpatient (AMB) | payer OTHER, SELFPAY ==
--- NOTE | 2025-06-02 15:43 | A.OFFPC_ITS ---
Vital Signs 06/02/25 15:45 Height 5 ft 11 in Weight 287 lb 6 oz BMI 40.1 BP 130/80 Blood Pressure Location Rt brachial Position Sitting Respiration 18 Pulse 88 Pulse Source Pulse Oximeter Temp 98.6 F Temp Source Oral Pulse Oximetry (%) 98 Oxygen Delivery Method Room Air Intake Visit Reasons: [address] Edwin scott labs/HTN/HLD/^ LFTS RESCHEDULE Intake Note: patient is scheduled to follow up on labs results and to r/o diverticulitis patient is having LL abd pain Ammonia Box Operator Required: No Allergies No Known Allergies Allergy (Verified 06/02/25 15:44) Medication List - Last Reconciled 06/02/25 by Eugenio Grimaldo MD alprazolam 0.5 mg PO DAILY PRN buspirone 7.5 mg PO BID lisinopril 20 mg PO DAILY 90 days propranolol 20 mg PO TID Tobacco use date assessed: 08/24/24 Dental Screening Dental Screen Date: 08/24/24 [address] Edwin scott labs/HTN/HLD/^ LFTS RESCHEDULE HPI Details 39 y/o male presents to f/u HTN, HLD, la bs. Labs drawn 06/01/25. Reviewed labs with pt. A1c 5.2%. Elevated liver enzymes - AST 77, ALT 87. Reports ongoing alcohol use. Triglycerides 167. TC 240. LDL 156. HDL 51. Reports some abd. pain. Blood pressure today 130/80, 88p. He is on lisinopril 20mg, propranolol 20mg t.i.d. HPI Comments History of Present Illness Details Documentation assistance for Eugenio Grimaldo MD, was provided by George Pittman,? Outreach Clinician on 06/02/2025 at 4:18 PM EST. I, Dr. Grimaldo, have read, observed, and verified documentation. ? PFSH Surgical History No pertinent past surgical history Family History Father High blood pressure Social History Household Members: Family Household Members Other:: parents Both parents involved: Yes Caregiver staying overnight: No Housing: House Housing Other:: hmoe Are you a primary furnace caretaker to a significant other at home: No Do you presently have visiting nurse or other home services: No 75 years or older and lives alone: No Alcohol intake: current Patient Tobacco Use Status: Former Tobacco user Cigarette Packs Per Day: 1 Cigarettes Per Day: 20.0 Years Smoked: 5 e-Cigarette/Vaping Use: Never Used Substance Use Type: Painkillers service: No Current occupational status: employed 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 [employer] Current occupational exposures/hazards: Yes Cognitive needs: No Hearing needs: No Vision needs: Yes Questionnaire Thrive Questionnaire Date Thrive assessed: 08/24/24 I am a: Patient What is your living situation today?: I have a steady place to live Within the past 12 months, did the food you bought not last and you didn't have the money to get more?: Never true Within the past 12 months, did you worry whether your food would run out before you got money to buy more?: Never true Do you have trouble paying for medicines?: No Do you have trouble getting transportation to medical appointments?: No Do you have trouble paying your heating and electricity bill?: No Do you have trouble taking care of your child, family member or friend?: No Do you have trouble with day-to-day activities such as bathing, preparing meals, shopping, managing finances, etc.?: No Are you currently unemployed and looking for a job?: No Are you interested in more education?: No Please select the resources that you would like help with: None Currently or been in a relationship where the following occur: No concerns reported THRIVE Score: 0 ASHA-7 AMB Questionnaire ASHA-7 Date ASHA - 7 assessed: 08/24/24 Source: Developed by Drs. Pal Bruce, Jessika Mendez, Salazar mcintyre nd colleagues, with an educational pedro from [employer]. Review of Systems Const Denies chills, Denies fatigue, Denies fever(s), Denies headache(s) and Denies weakness ENT Denies dizziness and Denies headache(s) Card Denies dyspnea Resp Denies cough, Denies dyspnea, Denies wheezing and Denies other (shortness of breath) GI Reports abdominal pain Musc Denies numbness and Denies tingling Neuro Denies dizziness, Denies headache(s), Denies numbness, Denies tingling and Denies weakness Psych Denies anxiety and Denies depression Endo Denies fatigue Aller/Immun Denies wheezing Physical exam (Primary Care) Vital Signs: Last Vital Signs Temp 98.6 F 06/02/25 15:45 Pulse 88 06/02/25 15:45 Resp 18 06/02/25 15:45 BP 130/80 06/02/25 15:45 Pulse Ox 98 06/02/25 15:45 Oxygen Delivery Method Room Air 06/02/25 15:45 BMI result Body Mass Index 40.1 Tobacco/Smoking Status: Tobacco use Status Tobacco use date assessed 08/24/24 06/02/25 15:47 Patient Tobacco Use Status Former Tobacco user 06/02/25 15:47 e-Cigarette/Vaping Use Never Used 06/02/25 15:47 Thrive Assessment: Date of Thrive Assessment Date Thrive assessed 08/24/24 06/02/25 15:47 Currently or been in a relationship where the following occur: No concerns reported Const General: well developed; No acute distress Nutritional Appearance: well nourished Orientation/consciousness: patient oriented x3 HENMT Head: Yes normocephalic and Yes atraumatic Eyes General: appearance normal, both eyes and all related structures Pupils: Equal, round and reactive pupils present EOM: EOMs intact bilaterally Resp Effort & Inspection: normal respiratory effort Neuro General: patient oriented x3 and gait normal Cranial nerves: Yes Equal, round and reactive pupils present Psych Affect: normal affect Coding Level of Care Code Est Pt Level 5 (61091) Diagnoses Primary hypertension I10 Hypertension type: primary hypertension Hypercholesterolemia E78.00 Elevated LFTs R79.89 Abdominal pain R10.9 Alcohol use disorder F10.90 Assessment & Plan Assessment & Plan (1) Hypertension: Code(s): I10 - Essential (primary) hypertension Category: Medical Qualifiers: Hypertension type: primary hypertension Qualified Code(s): I10 - Essential (primary) hypertension Plan: Blood pressure is controlled. Goal is less than 140/90 Continue current medication (2) Hypercholesterolemia: Code(s): E78.00 - Pure hypercholesterolemia, unspecified Category: Medical Plan: LDL cholesterol remains too high Start atorvastatin Discussed lifestyle changes Will recheck in 3 months (3) Elevated LFTs: Code(s): R79.89 - Other specified abnormal findings of blood chemistry Category: Medical Plan: Ongoing elevated LFTs Check ultrasound of liver and elastography Encouraged weaning cessation of alcohol Hydrate well Encouraged weight loss (4) Abdominal pain: Code(s): R10.9 - Unspecified abdominal pain Category: Medical Plan: Left lower quadrant pain which is intermittent Patient points to pain and this appears to be somewhat superficial. I do not feel an impulse will check an ultrasound to rule out hernia Will check lab work. Patient asks about diverticulitis. He would like a referral to gastroenterology-referred (5) Alcohol use disorder: Code(s): F10.90 - Alcohol use, unspecified, uncomplicated Category: Medical Plan: As above Orders: Orders US abdomen weinberg w elastography 06/02/25 R74.8 - Abnormal levels of other serum enzymes, R79.89 - Other specified abnormal findings of blood chemistry Comprehensive [place]. Panel Fast 06/02/25 Z00.00 - Encounter for general adult medical examination without abnormal findings Complete Blood Count Auto Diff 06/02/25 Z00.00 - Encounter for general adult medical examination without abnormal findings US pelvic limited 06/02/25 R10.9 - Unspecified abdominal pain Lipid Panel 06/02/25 E78.00 - Pure hypercholesterolemia, unspecified, Z00.00 - Encounter for general adult medical examination without abnormal findings Referrals Gastroenterology Referral R10.9 - Unspecified abdominal pain Medications: New atorvastatin (Lipitor) 20 mg PO BEDTIME 90 tabs 3RF 90 days
[2025-06-02 15:45] VITALS: BP 130/80; PULSE 88; RESP 18; TEMP 37; O2SAT 98; BMI 40.1
== END 2025-06-02 16:38 | disposition home or self-care (01) ==
LOC: HO.HMCFM 15:37
PROVIDERS: PCP Family Medicine; Visit Provider Family Medicine
DX: I10 Essential (primary) hypertension (principal); E78.00 Pure hypercholesterolemia, unspecified; R79.89 Other specified abnormal findings of blood chemistry; R10.9 Unspecified abdominal pain; F10.90 Alcohol use, unspecified, uncomplicated